=== PATIENT | male | born 1975 | race Caucasian/White ===

== ENCOUNTER 2016-08-26 19:01 | Emergency (ER) | payer OTHER ==
[~2016-08-26] VITALS: Ht 170.2 cm; Wt 91.2 kg
[~2016-08-26 19:01] MED LIST: EPP3/2 IM; IBUP-1050 PO
[2016-08-26 19:07] VITALS: TEMP 36.9; Ht 170.2 cm; Wt 91.2 kg
[2016-08-26] MEDS ORDERED: KETOROLAC TROMETHAMINE 30 MG/ML VIAL IV STA (19:36)
[2016-08-26] MEDS ORDERED: OXYC1TAB3 PO (19:40)
[2016-08-26] MEDS ORDERED: AMOX875T PO (19:40)
[2016-08-26] MEDS ORDERED: AMPICILLIN/SULBACTAM SOD INJ 3,000 MG in SODIUM CHLORIDE 0.9% 100ML 100 ML IV ONE (19:45)
[2016-08-26] MEDS ORDERED: ASCO500T16 PO (19:47)
[2016-08-26] MEDS ORDERED: AMOXICIL/CLAVU 875MG HOME PACK PO ONE (20:00)
[2016-08-26] MEDS ORDERED: OXYCODONE IR HOME PACK PO ONE (20:00)
[2016-08-26 20:46] VITALS: BP 135/98; PULSE 73; O2SAT 98
--- NOTE | 2016-08-26 20:53 | EMERGENCY ROOM VISIT NOTE ---
History First contact with patient: 19:29 Chief Complaint: DENTAL PAIN Stated Complaint: THROAT SWELLED LYMPH NODES, HURTS BAD Nursing Triage Summary: Patient ambulatory to triage, states "I had a broken tooth for a while. I am pretty sure something else is going on with it. My lymph nodes on the left side of my neck and mouth are swollen." Patient reports swelling began about 3 weeks ago. History of Present Illness The patient is a 41 year old male who presents to the Emergency Room with complaints of left lower jaw pain and facial swelling. The patient reports that he broke a tooth off "a long time ago". He has noticed intermittent pain and swelling of the left jaw for the past 3 weeks. He became concerned because of the increasing pain over the past 24 hours. He denies any fevers or chills. He rates his discomfort a 10 out of 10. Review of Systems 10 system review was performed and was negative except for pertinent positives and negatives as indicated in history of present illness Past Medical/Surgical History Medical Problems: (1) ANXIETY STATE NOS (2) Bipolar disorder (3) HTN (hypertension) (4) Lumbar disc herniation with radiculopathy Surgical Problems: (1) Bicept tendon surgery (2) History of tonsillectomy (3) Micro discectomy Family History Cancer Heart disease Lung disease Social History Smoking Status: Current Some Day Smoker Alcohol Use: occasionally Drug Use: none Housing Status: lives with family Occupation Status: employed Current/Historical Medications Scheduled Amoxicillin & Pot Clavulanate (Augmentin 875-125 mg), 1 TAB PO BID Ascorbic Acid (Ascorbic Acid), 500 MG PO WK Epinephrine (Epipen), 0.3 MG IM UD Scheduled PRN Oxycodone Ir (Roxicodone Ir), 1-2 TAB PO Q4H PRN for Pain Allergies Coded Allergies: BEE STING (Verified Allergy, Mild, 08/26/16) Physical Exam Vital Signs Date Time Temp Pulse Resp B/P Pulse Ox O2 Delivery O2 Flow Rate FiO2 08/26/16 20:46 73 20 135/98 98 08/26/16 19:07 36.9 98 18 172/113 97 Room Air Pain Rating (0-10): 7.0 Physical Exam CONSTITUTIONAL: Healthy and well nourished. Alert and oriented X 3 with positive affect. Patient does not appear acutely ill or toxic. HEENT: Normocephalic, atraumatic. Pupils equal, round and reactive. The patient does have mild left mandibular swelling. No erythema noted. OROPHARYNX: The patient has left gingival erythema, edema and mild pointing adjacent to a broken left molar. No fluctuance noted. No evidence for Madan' s angina or retropharyngeal abscess. LYMPHATICS: Mild left submandibular adenopathy noted. NECK: Full active range of motion without discomfort. RESPIRATORY: Clear to auscultation bilaterally with no wheezing, crackles, rhonchi or stridor. CARDIOVASCULAR: Regular rate and rhythm with no murmurs, rubs or gallops. INTEGUMENTARY: No rash or other significant dermatologic conditions noted. NEUROLOGIC: Facial sensations are intact. Medical Decision & Procedures Medications Administered Medications (Trade) Dose Ordered Sig/Irving Route Start Time Stop Time Status Last Admin Dose Admin Ampicillin Sodium/ Sulbactam Sodium/ Sodium Chloride (Unasyn Inj/Nss 100ml) 108 ml @ 200 mls/hr ONE ONCE IV 08/26/16 19:45 08/26/16 20:17 DC 08/26/16 19:56 200 MLS/HR Ketorolac Tromethamine (Toradol Inj) 30 mg NOW STAT IV 08/26/16 19:36 08/26/16 19:38 DC 08/26/16 19:56 30 MG Oxycodone HCl (Roxicodone Immediate Rel 5MG Home Pack) 1 homepack UD ONCE PO 08/26/16 20:00 08/26/16 20:01 DC 08/26/16 20:42 1 HOMEPACK Amoxicillin/ Clavulanate Potassium (Augmentin 875MG Home Pack) 1 homepack UD ONCE PO 08/26/16 20:00 08/26/16 20:01 DC 08/26/16 20:42 1 HOMEPACK ED Course Patient history and physical exam were performed. Nurse's notes were reviewed. Clinical exam is concerning for a dental abscess. IV access was established, and the patient was administered Unasyn 3 g IV infusion. He was also administered Toradol 30 mg IVP. The patient was provided home packs and prescriptions for Augmentin and OxyIR 5 mg. He was encouraged to alternate ibuprofen and Tylenol for baseline pain relief. He was instructed to follow-up with his dentist for further management. Return to the emergency department for any progressively worsening symptoms. The patient was also advised that his blood pressure is significantly elevated, and should follow up with his PCP for further evaluation. He has a known history of hypertension. The patient voiced understanding of all discharge instructions, and denied any significant pain at the time of discharge. Medical Decision [place] Drug Monitoring [place] Search Results: patient reviewed within database, no issues identified Impression Primary Impression: Dental abscess Departure Information Dispostion Home / Self-Care Prescriptions Oxycodone Ir (Roxicodone Ir) 5 Mg Tab 1-2 TAB PO Q4H Y for Pain, #24 TAB For Initial Treatment Prov: Tone Lassiter PA 08/26/16 Amoxicillin & Pot Clavulanate (Augmentin 875-125 mg) 1 Tab Tab 1 TAB PO BID for 10 Days, #20 TAB Prov: Tone Lassiter PA 08/26/16 Forms HOME CARE DOCUMENTATION FORM, IMPORTANT VISIT INFORMATION Patient Instructions My [facility] Additional Instructions Finish all Augmentin antibiotics as prescribed. Ibuprofen 800 mg and/or Tylenol 1000 mg every 8 hours. You may also alternate these medications for more effective pain relief: Ibuprofen --4 HRS--> Tylenol --4 HRS--> ibuprofen --4 HRS--> Tylenol .... OxyIR if needed for worse pain. Do not drink or drive while taking OxyIR. Follow-up with your dentist for further management.
== END 2016-08-26 20:47 | disposition home or self-care (01) ==
LOC: C.EDB 19:02 → C.EDD 20:47
DX: K04.7 Periapical abscess without sinus (principal); I10 Essential (primary) hypertension; F41.9 Anxiety disorder, unspecified; F31.9 Bipolar disorder, unspecified; M51.16 Intervertebral disc disorders with radiculopathy, lumbar region; Z80.9 Family history of malignant neoplasm, unspecified; Z82.49 Family history of ischemic heart disease and other diseases of the circulatory system; Z83.6 Family history of other diseases of the respiratory system; F17.210 Nicotine dependence, cigarettes, uncomplicated

== ENCOUNTER 2016-09-16 08:26 | Emergency (ER) | payer OTHER ==
[~2016-09-16] VITALS: Ht 170.2 cm; Wt 90.0 kg
[~2016-09-16 08:26] MED LIST changes: +ASCO500T16 PO; -IBUP-1050 PO; +OXYC1TAB3 PO
[2016-09-16 08:30] VITALS: TEMP 36.7
[2016-09-16] MEDS ORDERED: METHYLPREDNISOLONE 125 MG VIAL IV STA (08:57)
[2016-09-16] MEDS ORDERED: ALBUTEROL HFA 8 GM INHALER INH STA (08:57)
[2016-09-16] MEDS ORDERED: ALBUT/IPRATROP 3MG/0.5MG NEB 3 ML VIAL INH ONE (09:00)
[2016-09-16] MEDS ORDERED: HYDROCODONE/HOMATROPINE SYRUP 5MG/1.5MG 5ML UDP PO STA (09:04)
[2016-09-16] MEDS ORDERED: SODIUM CHLORIDE 0.9% 1000ML 1,000 ML IV STA (09:04)
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
[2016-09-16 09:10] VITALS: Ht 170.2 cm; Wt 90.0 kg
[2016-09-16 09:22] VITALS: PULSE 87; O2SAT 97
[2016-09-16 09:30] VITALS: O2SAT 95
[2016-09-16 09:45] LABS: BASO % 0.2 %; BASO ABS # 0.02 K/uL (0-0.2); COMPLETE YES; EOS % 0.6 %; HEMATOCRIT 40.9 % (42-52); IG% 0.1 %; LYMPH % 16.4 %; LYMPH ABS # 1.34 K/uL (1.2-3.4); MEAN CELL VOLUME 85.2 fL (80-100); MEAN CORPUSCULAR HGB CONC 35.2 g/dl (32-36); MONO % 10.9 %; NEUT % 71.8 %; PLATELET COUNT 283 K/uL (130-400); WHITE BLOOD COUNT 8.15 K/uL (4.8-10.8)
[2016-09-16 10:07] LABS: BUN/CREATININE RATIO 16.2 (10-20); CALCIUM 9.1 mg/dl (8.5-10.1); CREATININE 0.92 mg/dl (0.60-1.40); POTASSIUM 3.6 mmol/L (3.5-5.1)
--- NOTE | 2016-09-16 10:08 | DIAGNOSTIC IMAGING REPORT ---
SINGLE VIEW CHEST CLINICAL HISTORY: Dyspnea. FINDINGS: An AP, portable, upright chest radiograph is compared to study dated 11/01/2013. Correlation is made with chest CT dated 05/21/2008. The examination is degraded by portable technique and patient rotation. The cardiomediastinal silhouette is unremarkable. Nonspecific interstitial thickening is noted. There is no airspace consolidation or pleural effusion. No pneumothorax is seen. The bony thorax is grossly intact. IMPRESSION: No acute cardiopulmonary abnormality. Electronically signed by: Marcus Ferris M.D. 09/16/2016 10:07 AM Dictated Date/Time: 09/16/2016 10:06 AM
[2016-09-16 10:10] LABS: ALB/GLOB RATIO 1.2 (0.9-2)
[2016-09-16] MEDS ORDERED: HYDROmorphone INJ 1 MG/ML SYR IV STA (10:24)
[2016-09-16] MEDS ORDERED: KETOROLAC TROMETHAMINE 30 MG/ML VIAL IV STA (10:25)
[2016-09-16] MEDS ORDERED: PRED20TA2 PO (10:33)
[2016-09-16] MEDS ORDERED: HYDR5SYP11 PO (10:33)
[2016-09-16 11:37] VITALS: BP 145/86; PULSE 80; O2SAT 94
== END 2016-09-16 11:40 | disposition home or self-care (01) ==
LOC: C.EDB 08:28 → C.EDA 11:40
DX: J68.0 Bronchitis and pneumonitis due to chemicals, gases, fumes and vapors (principal); T59.7X1A Toxic effect of carbon dioxide, accidental (unintentional), initial encounter; X58.XXXA Exposure to other specified factors, initial encounter; Y92.89 Other specified places as the place of occurrence of the external cause; Y99.0 Civilian activity done for income or pay; F41.9 Anxiety disorder, unspecified; F31.9 Bipolar disorder, unspecified; I10 Essential (primary) hypertension; M51.16 Intervertebral disc disorders with radiculopathy, lumbar region; Z80.9 Family history of malignant neoplasm, unspecified; Z82.49 Family history of ischemic heart disease and other diseases of the circulatory system; Z83.6 Family history of other diseases of the respiratory system; F17.210 Nicotine dependence, cigarettes, uncomplicated

== ENCOUNTER 2016-11-07 10:21 | Emergency (ER) | payer OTHER ==
[~2016-11-07] VITALS: Ht 170.2 cm; Wt 92.2 kg
[~2016-11-07 10:21] MED LIST changes: -ASCO500T16 PO; -OXYC1TAB3 PO; +PRED20TA2 PO
[2016-11-07 10:26] VITALS: BP 142/98; PULSE 69; TEMP 36.7; O2SAT 98; Ht 170.2 cm; Wt 92.2 kg
[2016-11-07] MEDS ORDERED: PENICILLIN V POTASSIUM 250 MG TAB PO ONE (10:45)
[2016-11-07] MEDS ORDERED: IBUP600T44 PO (10:49)
[2016-11-07] MEDS ORDERED: AMOX500C3 PO (10:49)
[2016-11-07] MEDS ORDERED: PENI-82 PO (10:52)
[2016-11-07] MEDS ORDERED: OXYC1TAB3 PO (10:52)
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
== END 2016-11-07 11:00 | disposition home or self-care (01) ==
LOC: C.EDB 10:23
DX: K08.89 Other specified disorders of teeth and supporting structures (principal); S02.5XXA Fracture of tooth (traumatic), initial encounter for closed fracture; X58.XXXA Exposure to other specified factors, initial encounter; I10 Essential (primary) hypertension; Z87.891 Personal history of nicotine dependence; Z90.89 Acquired absence of other organs; Z98.890 Other specified postprocedural states

== ENCOUNTER 2016-12-30 09:16 | Emergency (ER) | payer OTHER ==
[~2016-12-30] VITALS: Ht 170.2 cm; Wt 91.4 kg
[~2016-12-30 09:16] MED LIST changes: +AMOX500C3 PO; +IBUP600T44 PO; +OXYC1TAB3 PO; +PENI-82 PO; -PRED20TA2 PO
[2016-12-30 09:21] VITALS: TEMP 36.5; Ht 170.2 cm; Wt 91.4 kg
[2016-12-30] MEDS ORDERED: OXYCODONE/ACETAMINOPHEN 5-325 TAB PO STA (10:08)
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
[2016-12-30] MEDS ORDERED: OXYC1TAB3 PO (12:12)
[2016-12-30 12:32] VITALS: BP 136/88; PULSE 60; O2SAT 100
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
== END 2016-12-30 12:33 | disposition home or self-care (01) ==
LOC: C.EDB 09:19
DX: S06.0X0A Concussion without loss of consciousness, initial encounter (principal); S16.1XXA Strain of muscle, fascia and tendon at neck level, initial encounter; W22.8XXA Striking against or struck by other objects, initial encounter; Y99.0 Civilian activity done for income or pay; R51 Headache; F43.10 Post-traumatic stress disorder, unspecified; F31.9 Bipolar disorder, unspecified; F41.9 Anxiety disorder, unspecified; I10 Essential (primary) hypertension; M51.16 Intervertebral disc disorders with radiculopathy, lumbar region; F17.200 Nicotine dependence, unspecified, uncomplicated

== ENCOUNTER 2017-01-07 18:13 | Inpatient (IN) | payer OTHER ==
[~2017-01-07] VITALS: Ht 170.2 cm; Wt 89.4 kg
[~2017-01-07 18:13] MED LIST changes: -AMOX500C3 PO; -EPP3/2 IM; -IBUP600T44 PO; -PENI-82 PO
[2017-01-07] MEDS ORDERED: PROCHLORPERAZINE 5 MG/ML 2 ML VIAL IV STA (18:52)
[2017-01-07] MEDS ORDERED: DiphenhydrAMINE HCL 50 MG/ML VIAL IV STA (18:52)
[2017-01-07] MEDS ORDERED: KETOROLAC TROMETHAMINE 30 MG/ML VIAL IV STA (18:52)
[2017-01-07] MEDS ORDERED: SODIUM CHLORIDE 0.9% 1000ML 2,000 ML IV STA (18:52)
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
--- NOTE | 2017-01-07 19:26 | DIAGNOSTIC IMAGING REPORT ---
CHEST ONE VIEW PORTABLE CLINICAL HISTORY: Multiple syncopal events. COMPARISON STUDY: Chest radiograph September 16, 2016. FINDINGS: There is no pneumothorax or pleural effusion. Lungs are clear. Cardiac size is normal. Mediastinal contours are normal. There is no evidence of pulmonary edema. IMPRESSION: No acute cardiopulmonary findings. Electronically signed by: Can Douglas M.D. 01/07/2017 7:25 PM Dictated Date/Time: 01/07/2017 7:24 PM
[2017-01-07 19:30] LABS: BASO % 0.2 %; BASO ABS # 0.02 K/uL (0-0.2); COMPLETE YES; EOS % 0.8 %; HEMATOCRIT 44.5 % (42-52); IG% 0.2 %; LYMPH % 9.5 %; MEAN CELL VOLUME 88.1 fL (80-100); MEAN CORPUSCULAR HEMOGLOBIN 29.5 pg (25-34); MEAN CORPUSCULAR HGB CONC 33.5 g/dl (32-36); MONO % 7.4 %; NEUT % 81.9 %; PLATELET COUNT 228 K/uL (130-400); RED BLOOD COUNT 5.05 M/uL (4.7-6.1); WHITE BLOOD COUNT 9.51 K/uL (4.8-10.8)
[2017-01-07 19:51] LABS: BUN/CREATININE RATIO 9.6 (10-20); POTASSIUM 3.3 mmol/L (3.5-5.1)
--- NOTE | 2017-01-07 20:03 | DIAGNOSTIC IMAGING REPORT ---
CT OF THE HEAD WITHOUT CONTRAST CLINICAL HISTORY: Multiple syncopal events s/p head injury 1 week ago. COMPARISON STUDY: Head CT December 30, 2016. CT DOSE: 537.48 mGy.cm TECHNIQUE: Helical axial images of the head were obtained without IV contrast. Automated exposure control was utilized for the study. FINDINGS: No acute intracranial hemorrhage, midline shift or mass effect is present. Ventricular system is normal. Basilar cisterns are patent. There are no extra-axial collections. Bautista-white differentiation is maintained. There are no findings to suggest acute dural sinus thrombosis or acute territorial infarct. There is no calvarial fracture. Visualized portions of the sinuses and mastoid air cells are clear. IMPRESSION: 1. No acute intracranial findings. 2. No calvarial fracture. Electronically signed by: Can Douglas M.D. 01/07/2017 8:02 PM Dictated Date/Time: 01/07/2017 7:57 PM
[2017-01-07 20:16] LABS: PARTIAL THROMBOPLASTIN RATIO 1.2; PROTHROMBIN TIME (PATIENT) 10.3 SECONDS (9.0-12.0)
--- NOTE | 2017-01-07 21:35 | DIAGNOSTIC IMAGING REPORT ---
CT ANGIOGRAPHY OF THE NECK WITH CONTRAST CLINICAL HISTORY: Right-sided head injury. Persistent headache. COMPARISON STUDY: Cervical spine CT December 30, 2016. Technique: CT angiography of the carotid and vertebral arteries was obtained using FlagTap 320 IV and 3D reconstruction on an independent workstation. NASCET criteria was utilized. CT DOSE: 1058.64 mGy.cm Findings: The bilateral common carotid, internal carotid and vertebral arteries are patent. There is no significant stenosis within these vessels. No dissection is identified within the major vasculature of the neck. No hematoma or cervical lymphadenopathy is present. No mucosal lesion is identified although these may be occult by CT. There is no cervical spine fracture. Chest will be reported separately. IMPRESSION: Normal CTA of the neck. Electronically signed by: Can Douglas M.D. 01/07/2017 9:33 PM Dictated Date/Time: 01/07/2017 9:25 PM
--- NOTE | 2017-01-07 21:44 | DIAGNOSTIC IMAGING REPORT ---
CT ANGIOGRAPHY OF THE CHEST, PULMONARY EMBOLUS PROTOCOL CLINICAL HISTORY: Chest pain and syncope. Vomiting. COMPARISON STUDY: Chest CT May 21, 2008 and chest radiograph performed earlier today. TECHNIQUE: Following IV administration of 117 mL of Optiray-320, helical axial images of the chest were obtained utilizing the pulmonary embolus protocol. Maximal intensity projections and sagittal and coronal reformats were viewed on an independent 3D workstation. IV contrast was administered without complication. FINDINGS: No pulmonary emboli are identified although the segmental and subsegmental pulmonary arteries are suboptimally assessed due to respiratory motion. The size of the heart is at the upper limits of normal. There is no evidence of thoracic aortic dissection. There are no enlarged thoracic lymph nodes. No pneumothorax or pleural effusion is present. Groundglass opacities within lungs suggest atelectasis. Central airways are patent. Bony thorax and upper abdomen are unremarkable. IMPRESSION: 1. No pulmonary emboli identified although segmental and subsegmental pulmonary arteries suboptimally assessed due to respiratory motion. 2. No thoracic aortic dissection. 3. No acute intrathoracic findings. Electronically signed by: Can Douglas M.D. 01/07/2017 9:43 PM Dictated Date/Time: 01/07/2017 9:35 PM
[2017-01-07 22:49] LABS: URINE APPEARANCE CLEAR (CLEAR); URINE BILIRUBIN NEG (NEG); URINE COLOR YELLOW; URINE NITRITE NEG (NEG); URINE PH 5.5 (4.5-7.5); URINE SPECIFIC GRAVITY 1.027 (1.000-1.030); UROBILINOGEN NEG (NEG); ZZUR CULT IF INDIC CLEAN CATCH NO
[2017-01-07 22:57] LABS: MANUAL MICROSCOPIC REQUIRED? NO; REVIEW REQ? NO
[2017-01-07 23:09] LABS: BENZODIAZEPINE, URINE NEG (NEG); COCAINE,URINE NEG (NEG); PHENCYCLIDINE, URINE NEG (NEG)
[2017-01-07] MEDS ORDERED: ALUMINUM/MAGNESIUM/SIMETH (MAALOX MAX) 30 ML UDC PO PRN (23:45)
[2017-01-07] MEDS ORDERED: POLYETHYLENE (MIRALAX) 17 GM PACK PO PRN (23:45)
[2017-01-07] MEDS ORDERED: ACETAMINOPHEN 325 MG TAB PO PRN (23:45)
[2017-01-07] MEDS ORDERED: ONDANSETRON INJ 2 MG/ML 2 ML VIAL IV PRN (23:45)
[2017-01-07] MEDS ORDERED: NITROGLYCERIN 0.4 MG SL PER TAB CHARGE SL PRN (23:45)
--- NOTE | 2017-01-07 23:46 | History and Physical ---
History & Physical Date & Time of Service: Jan 07, 2017 at 23:46 Chief Complaint: Vomiting, Unable To Stand, Head Pain- Primary Care Physician: No Doctor, Assigned History of Present Illness 41-year-old male with no significant past medical history except for history of concussion a few weeks ago presented to the ER with complaints of a headache that started this morning. Per ER notes, he had a concussion after he was hit by concrete 2 weeks ago while at work .he had briefly lost consciousness at that point. He was seen in the ER on 12/30/[address] was performed which was negative for hemorrhage. He was being treated for concussion. He also noted that he was wearing a harness at that time . He complains of headache and a syncopal episode which occurred this morning. He is unsure how long he was unconscious. he complains of numbness and tingling in his arm, nausea and headache. Denies any chest pain, shortness of breath, palpitations. Past Medical/Surgical History Medical Problems: (1) ANXIETY STATE NOS Status: Chronic (2) Bipolar disorder Status: Chronic (3) HTN (hypertension) Status: Chronic (4) Lumbar disc herniation with radiculopathy Status: Resolved Surgical Problems: (1) Bicept tendon surgery Status: Resolved (2) Micro discectomy Status: Resolved Family History Cancer Heart disease Lung disease Social History Smoking Status: Never Smoker Drug Use: none Housing status: lives alone Occupational Status: employed Immunizations History of Influenza Vaccine: No History of Tetanus Vaccine?: Yes History of Pneumococcal: No History of Hepatitis B Vaccine: Yes Multi-Drug Resistant Organisms History of MDRO: Yes Type of MDRO: MRSA Allergies Coded Allergies: BEE STING (Verified Allergy, Mild, 01/10/17) Home Medications Scheduled Colchicine (Colcrys), 0.6 MG PO BID Scheduled PRN Ketorolac Tromethamine (Ketorolac Tromethamine), 10 MG PO Q6H PRN for Pain Review of Systems Constitutional: No fever, No chills Eyes: No worsening of vision ENT: No hearing loss Respiratory: No cough, No sputum Cardiovascular: No chest pain, No orthopnea Abdomen: No pain, No nausea, No vomiting Genitourinary - Male: No hematuria Neurologic: + numbness/tingling (in right arm), + problem reported Hematologic / Lymphatic: No abnormal bleeding/bruising Integumentary: No rash Physical Exam Vital Signs Date Time Temp Pulse Resp B/P (MAP) Pulse Ox O2 Delivery O2 Flow Rate FiO2 01/07/17 22:23 55 16 98/61 97 Room Air 01/07/17 20:29 63 01/07/17 20:20 69 16 125/76 97 Room Air 01/07/17 18:24 36.9 62 16 138/96 99 Room Air General Appearance: WD/WN Head: normocephalic Eyes: normal inspection ENT: hearing grossly normal Neck: supple Respiratory/Chest: chest non-tender, lungs clear, normal breath sounds, no respiratory distress, no accessory muscle use Cardiovascular: regular rate, rhythm Abdomen/GI: normal bowel sounds, non tender, soft Extremities/Musculoskelatal: no calf tenderness, no pedal edema Neurologic/Psych: normal mood/affect, oriented x 3 (appesars drowsy), + pertinent finding Skin: normal color Diagnostics Laboratory Results Results Past 24 Hours Test 01/07/17 19:10 01/07/17 22:15 01/07/17 22:25 Range/Units White Blood Count 9.51 4.8-10.8 K/uL Red Blood Count 5.05 4.7-6.1 M/uL Hemoglobin 14.9 14.0-18.0 g/dL Hematocrit 44.5 42-52 % Mean Corpuscular Volume 88.1 80-100 fL Mean Corpuscular Hemoglobin 29.5 25-34 pg Mean Corpuscular Hemoglobin Concent 33.5 32-36 g/dl Platelet Count 228 130-400 K/uL Mean Platelet Volume 10.0 7.4-10.4 fL Neutrophils (%) (Auto) 81.9 % Lymphocytes (%) (Auto) 9.5 % Monocytes (%) (Auto) 7.4 % Eosinophils (%) (Auto) 0.8 % Basophils (%) (Auto) 0.2 % Neutrophils # (Auto) 7.79 1.4-6.5 K/uL Lymphocytes # (Auto) 0.90 1.2-3.4 K/uL Monocytes # (Auto) 0.70 0.11-0.59 K/uL Eosinophils # (Auto) 0.08 0-0.5 K/uL Basophils # (Auto) 0.02 0-0.2 K/uL RDW Standard Deviation 43.9 36.4-46.3 fL RDW Coefficient of Variation 13.6 11.5-14.5 % Immature Granulocyte % (Auto) 0.2 % Immature Granulocyte # (Auto) 0.02 0.00-0.02 K/uL Prothrombin Time 10.3 9.0-12.0 SECONDS Prothromb Time International Ratio 1.0 0.9-1.1 Activated Partial Thromboplast Time 30.8 21.0-31.0 SECONDS Partial Thromboplastin Ratio 1.2 D-Dimer 190 0-500 ug/L FEU Sodium Level 139 136-145 mmol/L Potassium Level 3.3 3.5-5.1 mmol/L Chloride Level 105 98-107 mmol/L Carbon Dioxide Level 29 21-32 mmol/L Anion Gap 5.0 3-11 mmol/L Blood Urea Nitrogen 10 7-18 mg/dl Creatinine 1.00 0.60-1.40 mg/dl Est Creatinine Clear Calc Drug Dose 107.3 ml/min Estimated GFR () 109.4 Estimated GFR (Non- 94.4 BUN/Creatinine Ratio 9.6 10-20 Random Glucose 108 70-99 mg/dl Calcium Level 9.0 8.5-10.1 mg/dl Total Creatine Kinase 452 39-308 U/L Troponin I 2.240 0-0.045 ng/ml Urine Color YELLOW Urine Appearance CLEAR CLEAR Urine pH 5.5 4.5-7.5 Urine Specific [place] 1.027 1.000-1.030 Urine Protein NEG NEG Urine Glucose (UA) NEG NEG Urine Ketones NEG NEG Urine Occult Blood NEG NEG Urine Nitrite NEG NEG Urine Bilirubin NEG NEG Urine Urobilinogen NEG NEG Urine Leukocyte Esterase NEG NEG Urine WBC (Auto) 1-5 0-5 /hpf Urine RBC (Auto) 0-4 0-4 /hpf Urine Hyaline Casts (Auto) 1-5 0-5 /lpf Urine Epithelial Cells (Auto) 5-10 0-5 /lpf Urine Bacteria (Auto) NEG NEG Urine Opiates Screen NEG NEG Urine Methadone, Qualitative NEG NEG Urine Barbiturates NEG NEG Urine Phencyclidine (PCP) Level NEG NEG Ur Amphetamine/Methamphetamine NEG NEG MDMA (Ecstasy) Screen NEG NEG Urine Benzodiazepines Screen NEG NEG Urine Cocaine Metabolite NEG NEG Urine Marijuana (THC) POS NEG Diagnostic Radiology [~ rep ct add3]] CT OF THE HEAD WITHOUT CONTRAST CLINICAL HISTORY: Multiple syncopal events s/p head injury 1 week ago. COMPARISON STUDY: Head CT December 30, 2016. CT DOSE: 537.48 mGy.cm TECHNIQUE: Helical axial images of the head were obtained without IV contrast. Automated exposure control was utilized for the study. FINDINGS: No acute intracranial hemorrhage, midline shift or mass effect is present. Ventricular system is normal. Basilar cisterns are patent. There are no extra-axial collections. Bautista-white differentiation is maintained. There are no findings to suggest acute dural sinus thrombosis or acute territorial infarct. There is no calvarial fracture. Visualized portions of the sinuses and mastoid air cells are clear. IMPRESSION: 1. No acute intracranial findings. 2. No calvarial fracture. Electronically signed by: Can Douglas M.D. 01/07/2017 8:02 PM Dictated Date/Time: 01/07/2017 7:57 PM CHEST ONE VIEW PORTABLE CLINICAL HISTORY: Multiple syncopal events. COMPARISON STUDY: Chest radiograph September 16, 2016. FINDINGS: There is no pneumothorax or pleural effusion. Lungs are clear. Cardiac size is normal. Mediastinal contours are normal. There is no evidence of pulmonary edema. IMPRESSION: No acute cardiopulmonary findings. Electronically signed by: Can Douglas M.D. 01/07/2017 7:25 PM Dictated Date/Time: 01/07/2017 7:[address] ANGIOGRAPHY OF THE CHEST, PULMONARY EMBOLUS PROTOCOL CLINICAL HISTORY: Chest pain and syncope. Vomiting. COMPARISON STUDY: Chest CT May 21, 2008 and chest radiograph performed earlier today. TECHNIQUE: Following IV administration of 117 mL of Optiray-320, helical axial images of the chest were obtained utilizing the pulmonary embolus protocol. Maximal intensity projections and sagittal and coronal reformats were viewed on an independent 3D workstation. IV contrast was administered without complication. FINDINGS: No pulmonary emboli are identified although the segmental and subsegmental pulmonary arteries are suboptimally assessed due to respiratory motion. The size of the heart is at the upper limits of normal. There is no evidence of thoracic aortic dissection. There are no enlarged thoracic lymph nodes. No pneumothorax or pleural effusion is present. Groundglass opacities within lungs suggest atelectasis. Central airways are patent. Bony thorax and upper abdomen are unremarkable. IMPRESSION: 1. No pulmonary emboli identified although segmental and subsegmental pulmonary arteries suboptimally assessed due to respiratory motion. 2. No thoracic aortic dissection. 3. No acute intrathoracic findings. Electronically signed by: Can Douglas M.D. 01/07/2017 9:43 PM Dictated Date/Time: 01/07/2017 9:[address] ANGIOGRAPHY OF THE NECK WITH CONTRAST CLINICAL HISTORY: Right-sided head injury. Persistent headache. COMPARISON STUDY: Cervical spine CT December 30, 2016. Technique: CT angiography of the carotid and vertebral arteries was obtained using Optiray 320 IV and 3D reconstruction on an independent workstation. NASCET criteria was utilized. CT DOSE: 1058.64 mGy.cm Findings: The bilateral common carotid, internal carotid and vertebral arteries are patent. There is no significant stenosis within these vessels. No dissection is identified within the major vasculature of the neck. No hematoma or cervical lymphadenopathy is present. No mucosal lesion is identified although these may be occult by CT. There is no cervical spine fracture. Chest will be reported separately. IMPRESSION: Normal CTA of the neck. Electronically signed by: Can Douglsa M.D. 01/07/2017 9:33 PM Dictated Date/Time: 01/07/2017 9:25 PM EKG Normal sinus rhythm with sinus arrhythmia Normal ECG When compared with ECG of 16-SEP-2016 09:12, T wave amplitude has decreased in Anterior leads Confirmed by FLACO DURAN MD ([id number]) on 01/07/2017 9:56:35 PM Impression Assessment and Plan 41-year-old male with no significant past medical history except for history of concussion a few weeks ago presented to the ER with complaints of a headache that started this morning and a syncopal episode this morning. Also complains of numbness and tingling in his right arm Postconcussive syndrome vs complex migraine( headache with numbness and tingling in R arm) - History of concussion 2 weeks ago - Head CT:IMPRESSION: 1. No acute intracranial findings. 2. No calvarial fracture. - Neck CTA due to concerns of numbness in arm: Normal CTA of the neck. - MRI brain ordered - Neurology consult Elevated troponin: - Initial troponin was found to be 2.24 - Likely secondary to cardiac contusion (due to injury a few weeks ago ) vs pericarditis vs CAD - EKG: Normal sinus rhythm with sinus arrhythmia ,Normal ECG - CTA chest:1.No pulmonary emboli identified although segmental and subsegmental pulmonary arteries suboptimally assessed due to respiratory motion. 2. No thoracic aortic dissection. 3. No acute intrathoracic findings. - Troponins trended every 8 hours - Echo ordered - Consult cardiology DVT prophylaxis: SCDs Full code Disposition: Admitted to telemetry Addendum: At about 3:20 AM , was notified by nursing that he was found to have ST elevations on the cardiac rehab nurse. Heart alert was called, EKG, stat chest x-ray, stat troponins were ordered. He also had a bump in his troponin to 4.25 from 2.24 at 2350 The patient was asymptomatic during this time but his heart rate had dropped to 40s -50s. He was taken to the [facility] for cardiac catheterization Attending Addendum: I physically seen and examined this patient, have supervised the medical residents activities, and agree with the H&P as noted above with the following exceptions: NONE The patient is awake, well-developed and adequately nourished, alert and oriented 3, normocephalic and atraumatic, lying in bed and in no acute distress. HEENT--PERRL, EOMI, mucous membranes and oropharynx dry. Neck--supple, no JVD or bruits, thyroid normal, trachea midline, no adenopathy. Heart--normal S1 and S2, no extra beats, no murmurs, rubs or gallops. Lungs--clear bilaterally, but diminished throughout no respiratory distress, no accessory muscle use. Abdomen--normal bowel sounds and soft, nontender and nondistended, no hernias or masses, no organomegaly. Extremities--no cyanosis, clubbing or edema. There are good distal pulses b/l. Dermatologic--normal skin turgor, normal color, warm and dry, no abnormal lymph nodes, no rash. Neurologic--cranial nerves II through XII grossly intact, motor and sensory examination normal. Rheumatologic--normal range of motion, nontender, muscles and joints. Psychiatric--normal affect. Assessment and Plan: 1. Postconcussive syndrome--patient has had intermittent symptoms of headache and disorientation over the past 2 weeks following head trauma, and today had a syncopal episode. He'll be admitted to the telemetry unit for frequent neuro checks, and cardiac rhythm monitoring. Elevated troponin of 2.24 on admission-they also be elevated on basis of pericarditis, possible SVT which could be linked to syncopal episode, and possible ischemia. He was admitted to the telemetry unit for rhythm monitoring , and serial cardiac enzymes with a 2-D echocardiogram planned. The patient developed elevated heart enzymes increasing to 4.25 overnight, a symptomatic bradycardia down into the 40s, and EKG suggestive of ST elevation which could represent a pericarditis or ischemia. At that point, heart alert was called, and the patient was taken to the cardiac catheterization lab by Dr. Duran, fortunately had normal cardiac catheterization, and was started on colchicine and aspirin for pericarditis. Level of Care Telemetry Resuscitation Status FULL RESUSCITATION VTE Prophylaxis VTE Risk Assessment Done? Y/N: Yes Risk Level: Moderate Given or contraindicated: SCD's
[2017-01-08] VITALS (21 sets, daily range): BP systolic 101–201; BP diastolic 71–138; PULSE 47–70; TEMP 36.4–36.9; O2SAT 93–100; Ht 170.2 cm; Wt 89.4 kg
[2017-01-08] MEDS ORDERED: ASPIRIN 81 MG CHEW PO STA (03:28)
[2017-01-08] MEDS ORDERED: NSS + 20MEQ KCL 1000ML 1,000 ML IV SCH (03:30)
[2017-01-08] MEDS ORDERED: ASPIRIN 324 MG CHEW ONE (03:38)
[2017-01-08] MEDS ORDERED: POTASSIUM CHLORIDE 20 MEQ TABCR PO STA (03:42)
[2017-01-08] MEDS ORDERED: NiCARDipine HCL INJ 2.5 MG/ML 10 ML AMP ONE (03:49)
[2017-01-08] MEDS ORDERED: NITROGLYCERIN/D5W 100MCG/ML 20ML SYR ONE (03:49)
[2017-01-08] MEDS ORDERED: MIDAZOLAM HCL 1 MG/ML 2ML VIAL ONE ×2 (03:49→04:39)
[2017-01-08] MEDS ORDERED: HEPARIN SOD (PORCINE) 1000 UNIT/ML 10 ML VIAL ONE (03:49)
[2017-01-08] MEDS ORDERED: FENTANYL CITRATE INJ 50 MCG/1 ML 2 ML VIAL ONE ×2 (03:49→04:40)
[2017-01-08] MEDS ORDERED: POTASSIUM CHLORIDE 20 MEQ TABCR PO SCH (04:00)
[2017-01-08 04:07] LABS: BUN/CREATININE RATIO 9.7 (10-20); CALCIUM 8.6 mg/dl (8.5-10.1); CREATININE 0.81 mg/dl (0.60-1.40)
[2017-01-08] MEDS ORDERED: LIDOCAINE HCL 1% 20 ML VIAL ONE (04:39)
[2017-01-08] MEDS ORDERED: LIDOCAINE/EPINEPHRINE 1% 20 ML VIAL ONE (05:00)
[2017-01-08] MEDS ORDERED: SODIUM CHLORIDE 0.9% 1000ML 250 ML IV PRN (05:35)
[2017-01-08] MEDS ORDERED: ONDANSETRON INJ 2 MG/ML 2 ML VIAL IV PRN (05:45)
[2017-01-08] MEDS ORDERED: ATROPINE SULFATE 0.1 MG/ML 5ML SYR IV PRN (05:45)
[2017-01-08] MEDS ORDERED: ACETAMINOPHEN 325 MG TAB PO PRN (05:45)
--- NOTE | 2017-01-08 05:49 | Procedure Note ---
Post-Mod Sedation Assessment General Date of Moderate Sedation Jan 08, 2017. Vital Signs: Vital Signs Past 12 Hours Date Time Temp Pulse Resp B/P (MAP) Pulse Ox O2 Delivery O2 Flow Rate FiO2 01/08/17 05:13 53 16 111/70 (84) 98 Room Air 01/08/17 01:06 36.6 56 18 143/76 97 Room Air 01/08/17 00:31 54 18 103/71 96 01/07/17 22:23 55 16 98/61 97 Room Air 01/07/17 20:29 63 01/07/17 20:20 69 16 125/76 97 Room Air 01/07/17 18:24 36.9 62 16 138/96 99 Room Air Review - Discharge Criteria Vital Signs Stable: Yes Alert/Oriented/Conversant: Yes Returned to Baseline Mental St: Yes Nausea Absent/Minimal: Yes Pain/Discomfort/Absent/Minimal: Yes Normal/Baseline Respirations: Yes Active Bleeding?: No Pt Received D/C Instructions: N/A Prescriptions Given: None Specific Proced. D/C Criteria Distal Pulses Present (Cardiac: Yes Groin site assessed-Card Cath: Yes Voided Prior To Discharge: N/A Discharged Patients Adult Escort/Transportation: N/A
--- NOTE | 2017-01-08 05:49 | Procedure Note ---
Pre-Mod Sedation Assessment General Date of Moderate Sedation: Jan 08, 2017. Vital Signs: Vital Signs Past 12 Hours Date Time Temp Pulse Resp B/P (MAP) Pulse Ox O2 Delivery O2 Flow Rate FiO2 01/08/17 05:13 53 16 111/70 (84) 98 Room Air 01/08/17 01:06 36.6 56 18 143/76 97 Room Air 01/08/17 00:31 54 18 103/71 96 01/07/17 22:23 55 16 98/61 97 Room Air 01/07/17 20:29 63 01/07/17 20:20 69 16 125/76 97 Room Air 01/07/17 18:24 36.9 62 16 138/96 99 Room Air Review Cardiovascular: regular rate, rhythm, no edema, no gallop, no JVD, no murmur, normal peripheral pulses Abdomen: non tender, soft Lungs: lungs clear Pre-Sedation Airway Assessment Oral Cavity: WNL Able to Visualize Vocal Cords: No Short Thick Neck: No Hx of Sleep Apnea: No Smoking Status: Former Smoker Mallampati Classification: Class III Procedure Planning Contraindications-for Mod Sed: None Yes Notes The planned sedation has been discussed with the patient and consent obtained. I have identified the patient, determined the appropriateness of sedation and have assessed the patient immediately prior to the procedure. All medicine(s) and interventions are by my order.
[2017-01-08] MEDS: SODIUM CHLORIDE 0.9% 1000ML 1,000 ML IV SCH ×3 (05:59→21:16)
--- NOTE | 2017-01-08 06:16 | Cardiac Catheterization ---
Procedure Note Procedure Date Jan 08, 2017. Pre-Procedure Diagnosis STEMI AUC Score 9 Post-Procedure Diagnosis Normal Coronary Arteries, Elevated Intracardiac Pressures (Mildly elevated LVEDP of 15 mm Hg) Procedure(s) Performed Coronary Angiography, Left Heart Cath, LV Angiography, Ultrasound Guided Vascular Access, Femoral Artery Angiography [employer] Dr. Duran Jtac(s) CHERI Guardado Estimated Blood Loss 15 ml Medication(s) Fentanyl, Versed, Lidocaine 1% Summary of Findings Clinical indications: The patient was admitted with complaints of migraine headache and syncope. Also complaints of chest pressure. Electrocardiogram with slight concave ST segment elevations in the anterior and inferior leads. Similar to prior electrocardiograms.Initial troponin I was elevated at 2.240. Subsequent troponin I increased to 4.250. while being monitored it was felt the patient had increase ST segment elevations. A repeat electrocardiogram was performed and was felt to show increase ST segment elevations. The patient complained of mild chest tightness. Because of the ST segment changes, elevated cardiac enzymes, and complain of chest discomfort a heart alert was called. The patient was evaluated by me in the intensive care unit. He had complaints of mild vague chest tightness. Because of the ST segment elevations on the monitor and electrocardiogram and because of his elevated cardiac enzymes it was felt best to take the patient to the catheterization laboratory to exclude the presence of significant underlying coronary artery disease. After discussion with the patient by me regarding the risks, benefits , and indications for cardiac catheterization the patient consented to the procedure. Catheterization site: It was 1st attempted to obtain arterial access in the right radial artery. The right radial artery was accessed. However, the guidewire would not advance. Initially the right radial pulses strongly palpable. It was no longer the palpable. This was felt to represent spasm. Hemostasis was obtained. Under ultrasound guidance a 6 Belgian sheath was then inserted in the right femoral artery. Catheters: 6 Belgian JL4, JR4 diagnostic catheters. Five Belgian pigtail diagnostic catheter. Hemostasis: 6 Belgian StarClose vascular closure system. Complications: None. Findings: Fluoroscopy did not reveal any coronary calcifications. The coronary circulation was right dominant. The left main coronary artery was a large caliber vessel without obstructive disease. It gave rise to large caliber left anterior descending, medium caliber left circumflex, and small to medium caliber ramus intermedius coronary arteries. The proximal LAD gave rise to a long small caliber bifurcating diagonal artery. The proximal and mid LAD had minor luminal irregularities. The distal LAD wraps around the apex of the heart as a small caliber vessel. The ramus was normal. Left circumflex gave rise to very small caliber 1st and 2nd marginal arteries. The distal circumflex gave rise to two very small caliber posterolateral arteries. The right coronary was a medium to large caliber vessel. It had no obstructive disease. Distal RCA gave rise to a small caliber posterior descending artery and a long medium caliber posterolateral artery. These vessels had no obstructive disease. Left ventricular angiography performed from the 30 degree right anterior oblique projection revealed all LV segments to contract normally. The left ventricular ejection fraction was 60 percent. No mitral regurgitation. Femoral artery angiography revealed the sheath to be present in the right common femoral artery. The right external iliac, right common femoral , right profunda, and right superficial femoral arteries were normal. Assessment: 1. Very minor luminal irregularities of the LAD. No significant obstructive coronary artery disease. 2. Normal left ventricular systolic function and wall motion. 3. Minimally elevated left ventricular end-diastolic pressure following coronary angiography. 4. Based on the findings at catheterization, electrocardiogram, and cardiac enzymes the patient may have myopericarditis. Recommendations: 1.Colchicine 0.6 milligrams b.i.d., ibuprofen 400 milligrams t.i.d.. 2. Echocardiogram to further assess left ventricular wall motion and the pericardium. 3. Check lipid profile and direct LDL. 4. Treatment for hypertension. Hemodynamics Rest Ao: 107/67/86 mm Hg Final Ao: 107/68/87 mm Hg LV: 116/15 mm Hg Recommendations Medical therapy and/or Counseling Specimens None Radiation Exposure (mGy) 1472 Contrast (mls) 120 ml Visipaque Fluids (cc crystalloids) 104 Drains none Anesthesia Intravenous Versed and fentanyl. Lidocaine 1 percent for local anesthesia. Procedural Complication(s) None Disposition ICU ACC Data Cardiac Status Clinical evaluation leading to the procedure CAD Presntation: Sx unlikely to be ischemic Anginal Classification: No symptoms Heart Failure: No Cardiogenic Shock w/in 24Hrs: No Cardiac Arrest w/in 24Hrs: No Imaging studies past 6 months: No Stress studies past 6 months: No Standard Exercise Stress Test: No Stress Echocardiogram: No Stress Testing w/SPECT MPI: No Cardiac CTA: No Coronary Anatomy Dominant: Right Left Main (% Stenosis): Normal LAD (% Stenosis): Proximal (0-10), Mid (0-10) D1 (% Stenosis): Normal Circumflex (% Stenosis): Normal OM1 (% Stenosis): Normal OM2 (% Stenosis): Normal L PL1 (% Stenosis): Normal L PL2 (% Stenosis): Normal RCA (% Stenosis): Normal R PDA (% Stenosis): Normal R PL1 (% Stenosis): Normal Ramus (% Stenosis): Normal Left Ventricular Angiography EF (%): 60 Wall Motion: Inferior (Normal), Apical (Normal), Anterior (Normal) Mitral Regurgitation: None Diagnostic Physician's Name: Russell Duran M.D. Status: Emergency Closure Device Percutaneous Entry Location: Femoral Closure Device: StarClose Recommendations: Medical therapy and/or Counseling
[2017-01-08] MEDS ORDERED: MoRPHine SULFATE 2 MG/ML CARP ONE (06:22)
[2017-01-08] MEDS ORDERED: NURSING VERBAL MED ORDER ONE (06:30)
--- NOTE | 2017-01-08 06:44 | DIAGNOSTIC IMAGING REPORT ---
CHEST ONE VIEW PORTABLE HISTORY:41 yearsM[place]ob COMPARISON: CTA chest 01/07/2017, chest radiograph 01/07/2017 TECHNIQUE: Portable upright AP view of the chest FINDINGS: Cardiac silhouette is upper limits of normal, likely accentuated by technique. There is no pneumothorax, pleural effusion or overt pulmonary edema. Linear subsegmental opacity of the right mid lung suggests atelectasis. The bones are grossly intact. IMPRESSION: Subsegmental atelectasis of the right midlung with otherwise clear chest. The above report was generated using voice recognition software. It may contain grammatical, syntax or spelling errors. Electronically signed by: London Roberson M.D. 01/08/2017 6:43 AM Dictated Date/Time: 01/08/2017 6:41 AM
[2017-01-08] MEDS: COLCHICINE 0.6 MG TAB PO SCH ×2 (09:05→21:28)
[2017-01-08] MEDS: IBUPROFEN 200 MG TAB PO SCH ×2 (09:05→13:24)
[2017-01-08] MEDS: MoRPHine SULFATE 2 MG/ML CARP IV PRN ×2 (09:14→23:53)
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
[2017-01-08] MEDS ORDERED: KETOROLAC TROMETHAMINE 15 MG/ML VIAL IV ONE (10:39)
[2017-01-08] MEDS ORDERED: KETOROLAC TROMETHAMINE 15 MG/ML VIAL IV PRN (10:45)
[2017-01-08] MEDS ORDERED: KETOROLAC TROMETHAMINE 15 MG/ML VIAL ONE (10:46)
--- NOTE | 2017-01-08 11:49 | DIAGNOSTIC IMAGING REPORT ---
ORBIT RADIOGRAPHS 3 VIEWS HISTORY: Pre-MRI pre-MRI screening. COMPARISON: None. FINDINGS: There are no radiopaque foreign bodies identified within the orbits. IMPRESSION: No radiopaque foreign bodies identified within the orbits. Electronically signed by: Varun Carver M.D. 01/08/2017 11:47 AM Dictated Date/Time: 01/08/2017 11:47 AM
--- NOTE | 2017-01-08 12:28 | Family Medicine Progress Note ---
Progress Note Date of Service Jan 08, 2017. 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 Heart alert was called , he had a clean cath was deemed like pericarditis, but also reported R arm pain and numbness. He apparently has a significant psych hx, including PTSD from an incident years ago. He stopped taking meds 6 years ago since he didnt like how he felt on them. Constitutional: No fever, No chills ENT: No hearing loss Respiratory: No cough, No sputum All Other Systems: Reviewed and Negative Medications Current Inpatient Medications Medications (Trade) Dose Ordered Sig/Irving Route Start Time Stop Time Status Last Admin Dose Admin Al Hydrox/Mg Hydrox/Simethicone (Maalox Max Susp) 15 ml Q4H PRN PO 01/07/17 23:45 02/06/17 23:44 Ondansetron HCl (Zofran Inj) 4 mg Q6H PRN IV 01/07/17 23:45 02/06/17 23:44 Nitroglycerin (Nitrostat Tab) 0.4 mg UD PRN SL 01/07/17 23:45 02/06/17 23:44 Polyethylene (Miralax Powder Packet) 17 gm DAILY PRN PO 01/07/17 23:45 02/06/17 23:44 Colchicine (Colchicine Tab) 0.6 mg BID PO 01/08/17 09:00 02/07/17 08:59 01/08/17 09:05 0.6 MG Ibuprofen (Advil Tab) 400 mg TID PO 01/08/17 09:00 02/07/17 08:59 01/08/17 09:05 400 MG Sodium Chloride 1,000 ml @ 125 mls/hr Q8H IV 01/08/17 05:35 02/07/17 05:34 01/08/17 05:59 125 MLS/HR Acetaminophen (Tylenol Tab) 650 mg Q4H PRN PO 01/08/17 05:45 02/07/17 05:44 7/12/17 09:04 650 MG Sodium Chloride 250 ml @ 999 mls/hr Q16M PRN IV 01/08/17 05:35 02/07/17 05:34 Atropine Sulfate (Atropine Sulfate 0.1MG/Ml Inj) 0.6 mg PRN PRN IV 01/08/17 05:45 02/07/17 05:44 Morphine Sulfate (MoRPHine SULFATE INJ) 2 mg Q2H PRN IV 01/08/17 06:30 01/22/17 06:29 01/08/17 09:14 2 MG Ketorolac Tromethamine (Toradol Inj) 15 mg Q6H PRN IV 01/08/17 10:45 01/13/17 10:44 Objective Vital Signs Date Time Temp Pulse Resp B/P (MAP) Pulse Ox O2 Delivery O2 Flow Rate FiO2 01/08/17 10:36 53 12 172/121 (138) 99 01/08/17 10:32 50 15 194/117 (142) 100 01/08/17 09:32 54 16 177/87 (117) 01/08/17 09:24 48 14 189/119 (142) 100 01/08/17 09:12 47 18 201/113 (142) 100 01/08/17 09:02 61 18 201/135 (157) 93 01/08/17 08:01 36.9 54 15 132/86 (101) 98 Room Air 01/08/17 08:00 Room Air 01/08/17 07:31 69 14 128/89 (102) 98 Room Air 01/08/17 07:01 51 14 113/91 (98) 97 Room Air 01/08/17 06:30 52 16 101/75 (84) 95 Room Air 01/08/17 06:15 50 16 118/82 (94) 96 Room Air 01/08/17 06:00 58 14 118/84 (95) 95 Room Air 01/08/17 05:45 59 14 107/71 (83) 94 Room Air 01/08/17 05:30 36.4 53 12 116/71 (86) 94 Room Air 01/08/17 05:13 53 16 111/70 (84) 98 Room Air 01/08/17 01:06 36.6 56 18 143/76 97 Room Air 01/08/17 00:31 54 18 103/71 96 01/07/17 22:23 55 16 98/61 97 Room Air 01/07/17 20:29 63 01/07/17 20:20 69 16 125/76 97 Room Air 01/07/17 18:24 36.9 62 16 138/96 99 Room Air Physical Exam General Appearance: WD/WN, no apparent distress Eyes: normal inspection, PERRL ENT: hearing grossly normal Neck: supple, no JVD Respiratory/Chest: lungs clear, normal breath sounds, no respiratory distress Cardiovascular: regular rate, rhythm, no murmur Abdomen: normal bowel sounds, non tender, soft Extremities: non-tender, no pedal edema Neurologic/Psychiatric: alert, normal mood/affect, oriented x 3 Skin: no rash Laboratory Results Last 24 Hours Test 01/07/17 19:10 01/07/17 22:25 01/07/17 23:50 01/08/17 03:29 White Blood Count 9.51 K/uL Red Blood Count 5.05 M/uL Hemoglobin 14.9 g/dL Hematocrit 44.5 % Mean Corpuscular Volume 88.1 fL Mean Corpuscular Hemoglobin 29.5 pg Mean Corpuscular Hemoglobin Concent 33.5 g/dl Platelet Count 228 K/uL Mean Platelet Volume 10.0 fL Neutrophils (%) (Auto) 81.9 % Lymphocytes (%) (Auto) 9.5 % Monocytes (%) (Auto) 7.4 % Eosinophils (%) (Auto) 0.8 % Basophils (%) (Auto) 0.2 % Neutrophils # (Auto) 7.79 K/uL Lymphocytes # (Auto) 0.90 K/uL Monocytes # (Auto) 0.70 K/uL Eosinophils # (Auto) 0.08 K/uL Basophils # (Auto) 0.02 K/uL RDW Standard Deviation 43.9 fL RDW Coefficient of Variation 13.6 % Immature Granulocyte % (Auto) 0.2 % Immature Granulocyte # (Auto) 0.02 K/uL Prothrombin Time 10.3 SECONDS Prothromb Time International Ratio 1.0 Activated Partial Thromboplast Time 30.8 SECONDS Partial Thromboplastin Ratio 1.2 D-Dimer 190 ug/L FEU Sodium Level 139 mmol/L 143 mmol/L Potassium Level 3.3 mmol/L 4.0 mmol/L Chloride Level 105 mmol/L 110 mmol/L Carbon Dioxide Level 29 mmol/L 26 mmol/L Anion Gap 5.0 mmol/L 7.0 mmol/L Blood Urea Nitrogen 10 mg/dl 8 mg/dl Creatinine 1.00 mg/dl 0.81 mg/dl Est Creatinine Clear Calc Drug Dose 107.3 ml/min 130.6 ml/min Estimated GFR () 109.4 129.8 Estimated GFR (Non- 94.4 112.0 BUN/Creatinine Ratio 9.6 9.7 Random Glucose 108 mg/dl 98 mg/dl Calcium Level 9.0 mg/dl 8.6 mg/dl Total Creatine Kinase 452 U/L Troponin I 2.240 ng/ml 4.250 ng/ml 3.620 ng/ml Urine Color YELLOW Urine Appearance CLEAR Urine pH 5.5 Urine Specific [place] 1.027 Urine Protein NEG Urine Glucose (UA) NEG Urine Ketones NEG Urine Occult Blood NEG Urine Nitrite NEG Urine Bilirubin NEG Urine Urobilinogen NEG Urine Leukocyte Esterase NEG Urine WBC (Auto) 1-5 /hpf Urine RBC (Auto) 0-4 /hpf Urine Hyaline Casts (Auto) 1-5 /lpf Urine Epithelial Cells (Auto) 5-10 /lpf Urine Bacteria (Auto) NEG Urine Opiates Screen NEG Urine Methadone, Qualitative NEG Urine Barbiturates NEG Urine Phencyclidine (PCP) Level NEG Ur Amphetamine/Methamphetamine NEG MDMA (Ecstasy) Screen NEG Urine Benzodiazepines Screen NEG Urine Cocaine Metabolite NEG Urine Marijuana (THC) POS Test 01/08/17 12:00 Assessment and Plan 41 yo M with recent concussion, who presented after a syncopal episode, found to likely have myopericarditis. Myopericarditis - Continue colchicine 0.6mg BID and Ibuprofen 600mg TID PO - Cardiology following - Will discuss potential tick borne exposure - Echo pending. Right arm numbness - Neurology consulted, appreciate Dr Delong's reccs - Pending MRI brain and C spine Hx PTSD, potential Bipolar disorder - Will need to discuss with pt. He is actively anxious which is likely contributing to elevated BP. Syncopal episode - No further events, will continue to monitor DVT prophylaxis: SCDs Full code Disposition: Admitted to telemetry Resident Physician Supervision Note: I interviewed and examined the patient. Discussed with Dr. Dominguez and agree with findings and plan as documented in the note. Any exceptions or clarifications are listed here: None Documented By: Jack Canada feeling better overall, brushing teeth, getting around without difficulty. d/w neurology, input appreciated. vitals noted nad breathing unlabored no pallor or icterus myopericarditis - improving post concussive syndrome - ongiong management otherwise as above Resident Tracking Resident Involvement: Resident Care Provided Care Provided: Adult Hospital Medicine
--- NOTE | 2017-01-08 12:45 | DIAGNOSTIC IMAGING REPORT ---
CERVICAL WITHOUT CONTRAST HISTORY:41 yearsMalestructural abnormality . Patient presents with neck injury status post work-related incident. Patient now reports migraines and possible loss of consciousness. COMPARISON: CT cervical spine 12/30/2016. TECHNIQUE: Multiplanar multisequence MRI of the cervical spine was obtained without IV contrast. FINDINGS: Large field of view images demonstrates no gross abnormality of the neck soft tissues or image thorax. The vertebral body heights are well-maintained without compression deformity. Alignment is satisfactory. There is no focal soft tissue or bone marrow edema. No fracture. The imaged posterior fossa structures are unremarkable. No soft tissue edema about the spine. Signal within the cord is within normal limits. C2-C3: Mild uncovertebral spurring without central canal or foraminal narrowing. C3-C4: Small broad-based posterior disc bulge effaces the ventral thecal sac without significant central canal narrowing. There is also associated uncovertebral spurring which contributes to cause mild right foraminal narrowing. Left foramen is patent. C4-C5: Mild uncovertebral spurring without central canal or foraminal narrowing. C5-C6: Small central broad-based posterior disc bulge effaces the ventral thecal sac without central canal or foraminal narrowing. C6-C7: Normal. C7-T1: Normal. The imaged upper thoracic levels also appear to be within normal limits. IMPRESSION: 1. No acute fracture, dislocation, focal soft tissue or bone marrow edema within the cervical spine. 2. Minimal degenerative changes of the mid cervical spine, most pronounced at C3-C4 where there is a small broad-based posterior disc bulge effacing the ventral thecal sac causing mild right foraminal stenosis. The above report was generated using voice recognition software. It may contain grammatical, syntax or spelling errors. Electronically signed by: London Roberson M.D. 01/08/2017 12:44 PM Dictated Date/Time: 01/08/2017 12:38 PM
--- NOTE | 2017-01-08 13:14 | DIAGNOSTIC IMAGING REPORT ---
MRI OF THE BRAIN WITHOUT AND WITH IV CONTRAST CLINICAL HISTORY: syncope. H/o concussion mental status change COMPARISON STUDY: No previous studies for comparison. TECHNIQUE: Utilizing a 1.5 Gillian magnet and dedicated coil, multiplanar, multiecho imaging of the brain was performed pre and postcontrast administration. IV administration of 8.5 mL of Gadavist contrast was uneventful. FINDINGS: Normal signal characteristics of the cerebellar as well as cerebral hemispheres. No evidence for an acute ischemic event. No abnormal postcontrast enhancement. The ventricular system is midline. IMPRESSION: Normal study. Electronically signed by: Varun Carver M.D. 01/08/2017 1:13 PM Dictated Date/Time: 01/08/2017 1:08 PM
[2017-01-08] MEDS ORDERED: GADAVIST IV PRN (13:15)
--- NOTE | 2017-01-08 15:47 | ECHOCARDIOGRAM REPORT ---
*NOTICE TO RECEIVING CONSTITUTION PARTY AGENCY This information is strictly Confidential and protected under [place] law. [place] law prohibits you from making any further disclosure of this information unless further disclosure is expressly permitted by the written consent of the person to whom it pertains or is authorized by law. A general authorization for the release of medical or other information is not sufficient for this purpose. Hospital accepts no responsibility if the information is made available to any other person, INCLUDING THE PATIENT. Interpretation Summary * Name: JUAN CARLOS TANG JR Study Date: 01/08/2017 02:40 PM BP: 172/121 mmHg * Patient Location: C.2T\S\E216\S\1 HR: 66 * : 1975 (M/d/yyyy) Gender: Male Height: 67 in * Age: 41 yrs Ethnicity: CA Weight: 202 lb * Ordering Physician: Komal Montiel * Referring Physician: Self, Referred * Performed By: Michell Connell RCS * * Reason For Study: ELEVATED TROPONIN * BSA: 2.0 m2 * -- Conclusions -- * Left ventricular systolic function is normal. * No regional wall motion abnormalities noted. * Ejection Fraction = 60-65%. * Diastolic dysfunction, Grade II (pseudonormalization pattern). * There is mild mitral regurgitation. Procedure Details * A complete two-dimensional transthoracic echocardiogram was performed (2D, M-mode, Doppler and color flow Doppler). Left Ventricle * The left ventricle is normal in size. * There is borderline concentric left ventricular hypertrophy. * Left ventricular systolic function is normal. * Ejection Fraction = 60-65%. * No regional wall motion abnormalities noted. Right Ventricle * The right ventricle is grossly normal size. * The right ventricular systolic function is normal as assessed by tricuspid annular plane systolic excursion (TAPSE) (normal >1.5 cm). Atria * The left atrial size is normal. * Right atrium not well visualized. * No ASD detected; PFO is not assessed. Mitral Valve * The mitral valve is grossly normal. * There is no mitral valve stenosis. * There is mild mitral regurgitation. Tricuspid Valve * The tricuspid valve is not well visualized, but is grossly normal. * There is no tricuspid stenosis. * There is trace tricuspid regurgitation. Aortic Valve * The aortic valve is not well visualized. * The aortic valve opens well. * No hemodynamically significant valvular aortic stenosis. * No aortic regurgitation is present. Pulmonic Valve * The pulmonary valve is not well seen, but the Doppler examination is normal without significant regurgitation or stenosis. Great Vessels * The aortic root is normal size. Pericardium/Pleural * There is no pericardial effusion. Great Vessels * Normal inferior vena cava size and collapsability with sniff indicates a normal right atrial pressure of 3 mmHg Left Ventricular Diastolic Function * Diastolic dysfunction, Grade II (pseudonormalization pattern). MMode 2D Measurements and Calculations IVSd 1.3 cm IVSs 1.7 cm LVIDd 4.7 cm LVIDs 3.6 cm LVPWd 1.2 cm LVPWs 1.3 cm IVS/LVPW 1.1 FS 24.0 % EDV(Teich) 102.7 ml ESV(Teich) 53.6 ml EF(Teich) 47.8 % EDV(cubed) 104.2 ml ESV(cubed) 45.8 ml EF(cubed) 56.1 % % IVS thick 30.0 % % LVPW thick 11.5 % LV mass(C)d 224.7 grams LV mass(C)dI 110.7 grams/m\S\2 LV mass(C)s 201.5 grams LV mass(C)sI 99.2 grams/m\S\2 SV(Teich) 49.1 ml SI(Teich) 24.2 ml/m\S\2 SV(cubed) 58.4 ml SI(cubed) 28.8 ml/m\S\2 Ao root diam 3.3 cm Ao root area 8.3 cm\S\2 ACS 2.0 cm LA dimension 3.3 cm LA/Ao 1.0 LVOT diam 2.0 cm LVOT area 3.1 cm\S\2 Doppler Measurements and Calculations MV E max zheng 108.9 cm/sec MV A max zheng 83.6 cm/sec MV E/A 1.3 MV P1/2t max zheng 105.8 cm/sec MV P1/2t 35.6 msec MVA(P1/2t) 6.2 cm\S\2 MV dec slope 870.9 cm/sec\S\2 MV dec time 0.12 sec Ao V2 max 126.7 cm/sec Ao max PG 6.4 mmHg Ao max PG (full) 3.2 mmHg CECILIA(V,A) 2.2 cm\S\2 CECILIA(V,D) 2.2 cm\S\2 LV V1 max PG 3.2 mmHg LV V1 max 90.1 cm/sec MR max zheng 638.7 cm/sec MR max PG 165.2 mmHg PA V2 max 97.7 cm/sec PA max PG 3.8 mmHg
--- NOTE | 2017-01-08 19:13 | Cardiology Consultation ---
Cardiology Consultation Date of Service Jan 08, 2017. Cardiology Consultation The patient was seen and examined by me earlier today. The 1st encounter was prior to him undergoing emergency cardiac catheterization. The 2nd was following the cardiac catheterization. Patient is a 41-year-old white male. His past medical history is significant for an episode of gastroenteritis in August of 2011. That time he reported 5 days of diarrhea. He presented to this hospital with pleuritic chest discomfort. His electrocardiogram revealed ST segment elevations consistent with early repolarization or pericarditis. His troponin I was elevated with a peak of 2.74. He was diagnosed with myopericarditis. An echocardiogram performed on September 11 2011 revealed normal left ventricular size and systolic function. Mild concentric LVH. Significant valvular abnormalities. No pericardial effusion. At this time the patient states that for the previous 4- 5 days he has been having loose stools. On January 07 had 2 episodes of loose stools. He states that it was a large amount of liquid stool. He had decreased oral intake on January 07. States he had decrease his urine production. Urine was dark in color. On the evening of January 07 after getting off of the toilet became lightheaded, nauseated, and diaphoretic. He thinks he may have had a brief episode of loss of consciousness for several seconds. This was not witnessed. He was speaking to his father on the telephone at the time. His father who was also in attendance this morning thinks that his son did not completely lose consciousness. Because of this episode the patient came to the emergency department for evaluation. His electrocardiogram revealed sinus rhythm. ST segment elevations consistent with early repolarization. Similar to prior electrocardiograms over the past several years. His troponin I was Initially elevated 2.2 4 0. Repeat troponin I later on the evening of January 07 was 4.250. He was admitted to the intensive care unit as a telemetry border. early on January 08 the patient was felt to have increased ST segment elevations on his monitored leads. A repeat electrocardiogram was performed and was felt the have increased ST segment elevations compared to electrocardiogram performed on January 07. A heart alert was called. The patient was evaluated by me in the intensive care unit. States he was having intermittent retrosternal chest pressure. No Associated symptoms with it. Discomfort was worse if he was bending forward. Slight pleuritic component to it. his electrocardiograms were reviewed me. There was a slight increase in ST segment elevations compared to earlier electrocardiograms since admission. In light of the elevated cardiac enzymes it was felt best to exclude significant obstructive coronary artery disease. He was taken to the cardiac catheterization lab. Arterial access was 1st attempted via the right radial artery. These attempts were unsuccessful. He developed spasm in the right radial artery. Catheterization was subsequently performed via a 6 Wolof sheath in the right femoral artery. This revealed a right dominant circulation. No obstructive coronary artery disease. Mild luminal irregularities of the LAD. Normal LV systolic function wall motion. based on the lack of obstructive coronary artery disease was felt the patient's enzyme elevation was secondary to myopericarditis. He was started on colchicine and ibuprofen. The patient was seen by me post catheterization. No complaints of chest pain. No pain in his right femoral catheterization site. No right leg pain. Since the episode of lightheadedness on the evening of January 07 no further lightheadedness. No nausea or diaphoresis. No further episodes of loose stools. No fevers or chills. He denies orthopnea or PND. No palpitations. No dyspnea at rest or with his normal activities. Recent past Medical history is significant for being struck in the head by a heavy object on December 19. He may have had loss of consciousness for a few minutes. He did not seek medical attention for this injury at that time. He he was seen in the emergency department at this hospital on December 30 for headaches. He has felt to have post concussive syndrome. The patient states that since then he has had recurrent headaches. He has severe headache on January 07. Had pain behind his right eye. Throbbing pain on the right side of his head. Photosensitivity. No focal motor weakness in his extremities. Past medical history 1. Presumed myopericarditis August 2011. 2. History of hypertension. 3. History of bipolar disorder.4. History of anxiety. 5. History of lumbar disc disease with radiculopathy. 6. Status post biceps tendon surgery. 7. Status post microdiskectomy surgery. 8. History of MRSA infection. Family history: His father developed coronary artery disease in his 50s. Social history: The patient is single. No children. Smoked cigarettes in the past. None for the past few years. He does chew tobacco. He smokes marijuana on a frequent basis Medications at the time of admission: None. Allergies: No known drug allergies. Review of systems: 10 point review of systems negative other than for above and sensation of constraint around his chest since his injury on December 19. Exam: When I initially examined the patient he was in no distress. Head: No evidence of trauma. Blood pressure 143/76. Pulse 56. Pulse oximetry 97 percent. Eyes: Pupils equal and round. Anicteric. Conjunctiva normal.: No jugular venous distention. Carotids 2/2 bilaterally. Normal upstroke. No bruits. Lungs: Clear. No rales or wheezes. Normal respiratory effort.: PMI normal. No lifts or heaves. Regular rate and rhythm. S1-S2 normal. No S3 or S4. No murmur or rub. Chest wall: Mild tenderness on palpation along both parasternal borders. Abdomen: Soft. Nontender. No palpable masses organomegaly. No bruits. Extremities: No pretibial edema. No cyanosis or clubbing. Right groin post catheterization revealed no evidence of bleeding. no hematoma. He had had a 6 Wolof StarClose vascular closure device deployed for hemostasis. Distal pulses strongly palpable post cardiac catheterization. Neurologic: Alert and oriented x3. Motor grossly intact. Psychiatric: Affect is normal. Imaging studies have included chest x-ray, CT scan of the chest with contrast, head CT scan, and CTA of the neck. Chest x-ray reviewed by me. No heart failure or infiltrate. CT of the chest without evidence of thoracic aortic aneurysm or pulmonary embolus. Head CT without any acute intracranial abnormality. CTA of the neck with no abnormalities noted in the great vessels. Labs revealed WBC 9.51, hemoglobin 14.9, hematocrit 44.5, platelet count 228. INR 1.0, PTT 30.8, sodium 143, potassium 4.0, chloride 110, carbon dioxide 26, BUN 8, creatinine 0.81, random glucose 98. Initial potassium had been 3.3 on the evening of January 07. Toxicology screen positive for marijuana. Electrocardiogram January 07 at 19:0 4:54 revealed sinus rhythm with sinus arrhythmia. ST segment elevations in leads 1, 2, AVF, V4-V6 consistent with early repolarization. No significant change in the ST segments compared to electrocardiogram of September 16, 2016. Electrocardiogram January 08 2017 at 3:12: 33 with sinus bradycardia, increased ST segment elevations leads 1, 2, V4-V6 a compared to the electrocardiogram on the evening of Tuyet 11th. ST segment elevations consistent with early repolarization versus pericarditis versus acute injury. Echocardiogram performed today preliminary report of normal left ventricular systolic function and wall motion. No pericardial effusion. assessment: 1. Electrocardiogram over the past several years consistent with early repolarization. Electrocardiogram earlier this morning with increase in the ST segment elevations. Subsequent cardiac catheterization with no obstructive coronary artery disease. Increased ST segment elevations likely secondary to pericarditis. 2. Elevated troponin I. In light of the coronary angiographic findings the troponin I elevation likely secondary to myopericarditis. Of note is that patient has had loose stools over the past several days. This was the same type of symptom preceeding his episode of myopericarditis in 2011. 3. Normal LV systolic function wall motion on both LV angiography and echocardiography. 4. No arrhythmia. 5. No vascular complications evident thus far post cardiac catheterization. 6. Chest discomfort likely combination of pericarditis as well as musculoskeletal discomfort. 7. Head trauma December 19. Post concussive type symptoms at this time. 8. Episode of near syncope or presyncope on the evening of January 07. Likely secondary to hypotension. Intravascular volume depletion secondary to decreased oral intake and increased GI fluid losses. 9. Hypokalemia on admission. Secondary to GI fluid losses. Recommendations: 1. The patient was started on colchicine 0.6 milligrams b.i.d. and ibuprofen 4 milligrams t.i.d. post cardiac catheterization. 2. Repeat electrocardiogram on January 09. Reassess ST segments. 3. Check serum magnesium in light of the hypokalemia and GI fluid losses. 4. Check lipid profile and direct LDL. If he has a significant dyslipidemia consider statin therapy. He has a significant CAD risk factor with his father having had development of coronary artery disease when he was in his 50s. 5. If his blood pressure increases further treat with antihypertensive medications. He has a history of hypertension. Thank you for asking us to see this patient in Cardiology consultation.
[2017-01-08] MEDS: KETOROLAC TROMETHAMINE 10 MG TAB PO PRN (21:16)
[2017-01-09] VITALS (7 sets, daily range): BP systolic 149–162; BP diastolic 98–107; PULSE 57–71; TEMP 36.5–36.9; O2SAT 97–100
[2017-01-09] MEDS ORDERED: NURSING VERBAL MED ORDER ONE (01:00)
[2017-01-09] MEDS: KETOROLAC TROMETHAMINE 10 MG TAB PO PRN ×2 (01:04→10:01)
[2017-01-09] MEDS: SODIUM CHLORIDE 0.9% 1000ML 1,000 ML IV SCH (05:04)
[2017-01-09 06:40] LABS: BASO % 0.6 %; BASO ABS # 0.04 K/uL (0-0.2); COMPLETE YES; EOS % 1.7 %; HEMATOCRIT 40.2 % (42-52); IG% 0.1 %; LYMPH ABS # 1.44 K/uL (1.2-3.4); MEAN CELL VOLUME 87.8 fL (80-100); MEAN CORPUSCULAR HEMOGLOBIN 29.7 pg (25-34); MEAN CORPUSCULAR HGB CONC 33.8 g/dl (32-36); MEAN PLATELET VOLUME 10.4 fL (7.4-10.4); MONO % 9.4 %; NEUT % 68.2 %; PLATELET COUNT 209 K/uL (130-400); RED BLOOD COUNT 4.58 M/uL (4.7-6.1)
[2017-01-09 07:15] LABS: ALT/SGPT 43 U/L (12-78); BLOOD UREA NITROGEN 7 mg/dl (7-18); BUN/CREATININE RATIO 7.6 (10-20); CALCIUM 8.6 mg/dl (8.5-10.1); CARBON DIOXIDE 26 mmol/L (21-32); CHLORIDE 108 mmol/L (98-107); CHOLESTEROL 144 mg/dl (0-200); CREATININE 0.88 mg/dl (0.60-1.40); GLUCOSE 98 mg/dl (70-99); POTASSIUM 3.9 mmol/L (3.5-5.1); SODIUM 140 mmol/L (136-145)
[2017-01-09 07:19] LABS: ALB/GLOB RATIO 1.1 (0.9-2); ALKALINE PHOSPHATASE 61 U/L (45-117); AST/SGOT 69 U/L (15-37); HDL CHOLESTEROL 36 mg/dl; TRIGLYCERIDES 101 mg/dl (0-150); VERY LOW DENSITY LIPOPROT CALC 20 mg/dl
[2017-01-09] MEDS ORDERED: CLC6 PO (10:56)
[2017-01-09] MEDS ORDERED: TRD10 PO (10:56)
--- NOTE | 2017-01-09 10:58 | Discharge Instructions ---
Discharge Instructions Date of Service Jan 09, 2017. Admission Reason for Admission: Post Concussive Syndrome, Syncope Discharge Discharge Diagnosis / Problem: Pericarditis, Concussion Discharge Goals Goal(s): Improve disease control Activity Recommendations Activity Limitations: per Instructions/Follow-up section Lifting Limitations: none Exercise/Sports Limitations: as tolerated May Resume Sexual Activity: when tolerated Shower/Bathe: no limitations Driving or Machine Use: no limitations . Instructions / Follow-Up Instructions / Follow-Up Follow up with your family doctor within a week. - Make sure to have your blood pressure checked when you go there. It has been high while you were in the hospital. - Take the medication Colchicine twice a day to help your chest pain. - Take the medication Toradol for headache needed - just make sure to take it with food. Current Hospital Diet Patient's current hospital diet: Regular Diet Discharge Diet Recommended Diet: AHA Diet (Heart Healthy) Pending Studies Studies pending at discharge: no Laboratory Results Lipid Panel Test 01/09/17 06:02 Range/Units Triglycerides Level 101 0-150 mg/dl Cholesterol Level 144 0-200 mg/dl HDL Cholesterol 36 mg/dl LDL Cholesterol Direct 94 mg/dl Cholesterol/HDL Ratio 4.0 LDL Cholesterol, Calculated mg/dl Medical Emergencies . Who to Call and When: Medical Emergencies: If at any time you feel your situation is an emergency, please call 911 immediately. . Non-Emergent Contact Non-Emergency issues call your: Primary Care Provider . . "Provider Documentation" section prepared by Cleo Dominguez. . VTE Core Measure Inpt VTE Proph given/why not?: SCD's
--- NOTE | 2017-01-09 11:03 | Discharge Summary ---
Discharge Summary Date of Service Jan 09, 2017. (Cleo Dominguez MD) Discharge Summary Admission Date: Jan 07, 2017 at 23:46 Discharge Date: Jan 09, 2017 Discharge Disposition: Home Principal Diagnosis: Pericarditis Problems/Secondary Diagnoses: Post-Concussion Immunizations: Have You Had Influenza Vaccine: No History of Tetanus Vaccine?: Yes History of Pneumococcal: No History of Hepatitis B Vaccine: Yes Procedures: Cardiac cath Consultations: Dr Duran - Cardiology (Cleo Dominguez MD) Medication Reconciliation New Medications: Colchicine (Colcrys) 0.6 Mg Tab 0.6 MG PO BID for 10 Days, #20 TAB Ketorolac Tromethamine (Ketorolac Tromethamine) 10 Mg Tab 10 MG PO Q6H PRN for Pain for 5 Days, #20 TAB Take with food Referrals At Discharge Follow up Referrals: Neurologist Referral - [place] 1-2 [place]eks [place] [facility] [place] Nerissa Daniels D.O. Discharge Exam Review of Systems: Constitutional: No chills, No sweats Eyes: No worsening of vision Respiratory: No cough, No sputum, No wheezing Cardiovascular: No chest pain, No orthopnea Abdomen: No pain, No nausea, No vomiting Genitourinary - Male: No hematuria, No dysuria Neurologic: + problem reported (headache, improves w/toradol), No memory loss, No paralysis Psychiatric: No depression symptoms, No anhedonism Endocrine: No fatigue Hematologic / Lymphatic: No abnormal bleeding/bruising Integumentary: No rash Physical Exam: General Appearance: WD/WN, no apparent distress Eyes: normal inspection, PERRL ENT: hearing grossly normal Neck: supple, no JVD Respiratory/Chest: lungs clear, normal breath sounds, no respiratory distress Cardiovascular: regular rate, rhythm, no murmur, normal peripheral pulses Abdomen / GI: normal bowel sounds, non tender Extremities: no pedal edema Neurologic/Psychiatric: alert, normal mood/affect, normal reflexes, oriented x 3 Skin: no rash (Cleo Dominguez MD) Hospital Course HPI: 41-year-old male with no significant past medical history except for history of concussion a few weeks ago presented to the ER with complaints of a headache that started this morning. Per ER notes, he had a concussion after he was hit by concrete 2 weeks ago while at work .he had briefly lost consciousness at that point. He was seen in the ER on 12/30/[address] was performed which was negative for hemorrhage. He was being treated for concussion. He also noted that he was wearing a harness at that time . He complains of headache and a syncopal episode which occurred this morning. He is unsure how long he was unconscious. he complains of numbness and tingling in his arm, nausea and headache. Denies any chest pain, shortness of breath, palpitations. HOSPITAL COURSE: Myopericarditis - Continue colchicine 0.6mg BID and Toradol 10mg q6h for pain - Does not need cardiology follow up unless symptoms change - Echo: * -- Conclusions -- * Left ventricular systolic function is normal. * No regional wall motion abnormalities noted. * Ejection Fraction = 60-65%. * Diastolic dysfunction, Grade II (pseudonormalization pattern). * There is mild mitral regurgitation. Post-concussive syndrome - May have component of underlying migraine, but for now treat symptomatically with Toradol - Neuro follow up in 2-3 weeks Hx PTSD, potential Bipolar disorder - Does not want to be on any psych meds. - Denies therapy which was offered. DVT prophylaxis: SCDs Full code Disposition: Discharged on 01/09/17 in good condition Total Time Spent: Greater than 30 minutes This includes examination of the patient, discharge planning, medication reconciliation, and communication with other providers. (Cleo Dominguez MD) Resident Physician Supervision Note: I interviewed and examined the patient. Discussed with Dr. Dominguez and agree with findings and plan as documented in the note. Any exceptions or clarifications are listed here: None Documented By: Jack Canada feeling better overall chest pain off and on but improving. headaches ongoing but not as severe. explained plan of care. explained outpt f/u. all other ROS otherwise negative except for as above vitals noted nad breathing unlabored no neuro deficits no pallor or icterus no appearance of pain/discomfort no diaphoresis myopericarditis - stable for discharge on NSAID and colchicine headaches - ?post concussive and baseline migraine/tension - f/u neuro as scheduled. stable for home, wants to go home, understands and agrees with plan as above (Jack Canada, D.O.) Discharge Instructions Please refer to the electronic Patient Visit Report (Discharge Instructions) for additional information. (Cleo Dominguez MD) Follow-Up - With PCP in 1 week - monitor BP and headache improvement - With Neuro in 1-2 weeks (Cleo Dominguez MD) Additional Copies To Nerissa Daniels D.O. Resident Tracking Resident Involvement: Resident Care Provided Care Provided: Adult [facility] (Cleo Dominguez MD)
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
== END 2017-01-09 13:35 | disposition home or self-care (01) | DRG 287 ==
LOC: C.EDB 18:14 → C.2E 23:46 → ENRESERV 01-08 00:09 → C.MSICU 01-08 02:57 → C.2T 01-08 13:20
PROVIDERS: ADMIT Family Medicine; ATTEND Family Medicine
PROC: B41F1ZZ Fluoroscopy of Right Lower Extremity Arteries using Low Osmolar Contrast (ICD-10-PCS; principal; 2017-01-08 03:50)
PROC: B2111ZZ Fluoroscopy of Multiple Coronary Arteries using Low Osmolar Contrast (ICD-10-PCS; principal; 2017-01-08 03:50)
PROC: 4A023N7 Measurement of Cardiac Sampling and Pressure, Left Heart, Percutaneous Approach (ICD-10-PCS; principal; 2017-01-08 03:50)
PROC: B2151ZZ Fluoroscopy of Left Heart using Low Osmolar Contrast (ICD-10-PCS; principal; 2017-01-08 03:50)
DX: I31.9 Disease of pericardium, unspecified (principal); F07.81 Postconcussional syndrome; W22.8XXS Striking against or struck by other objects, sequela; G44.309 Post-traumatic headache, unspecified, not intractable; R20.0 Anesthesia of skin; G43.909 Migraine, unspecified, not intractable, without status migrainosus; G44.209 Tension-type headache, unspecified, not intractable; M54.2 Cervicalgia; R55 Syncope and collapse; E87.6 Hypokalemia; A08.4 Viral intestinal infection, unspecified; E86.9 Volume depletion, unspecified; F41.9 Anxiety disorder, unspecified; F31.9 Bipolar disorder, unspecified; F43.10 Post-traumatic stress disorder, unspecified; Z87.891 Personal history of nicotine dependence; Z86.79 Personal history of other diseases of the circulatory system

== ENCOUNTER 2017-01-10 13:00 | Emergency (ER) | payer OTHER ==
[~2017-01-10] VITALS: Ht 170.2 cm; Wt 70.9 kg
[~2017-01-10 13:00] MED LIST changes: +CLC6 PO; -OXYC1TAB3 PO; +TRD10 PO
[2017-01-10 13:08] VITALS: TEMP 36.5; Ht 170.2 cm; Wt 70.9 kg
[2017-01-10 14:21] VITALS: BP 121/77; PULSE 71; O2SAT 97
--- NOTE | 2017-01-10 16:28 | EMERGENCY ROOM VISIT NOTE ---
History Report prepared by Sahil: Preet Senior Under the Supervision of: Dr. Efraín Woods D.O. First contact with patient: 14:20 Chief Complaint: OTHER COMPLAINT Stated Complaint: HEART CATH SITE R GROIN GETTING LARGER History of Present Illness The patient is a 41 year old male who presents to the Emergency Room with complaints of worsening bruise around the heart catheterization site on the right groin starting about 2-3 days ago. The patient had a heart catheterization about 2-3 days ago. He denies any bloody discharge or swelling. He currently denies any pain. He denies any fevers, chills, or any other complaints. Source of History: patient Onset: about 2-3 days ago Position: other (right groin area) Symptom Intensity: No pain Quality: other (bruise) Timing: worsening Associated Symptoms: No fevers, No chills Review of Systems See HPI for pertinent positives & negatives. A total of 10 systems reviewed and were otherwise negative. Past Medical & Surgical Medical Problems: (1) ANXIETY STATE NOS (2) Bipolar disorder (3) HTN (hypertension) (4) Lumbar disc herniation with radiculopathy (5) Post concussive syndrome (6) Syncope Surgical Problems: (1) Bicept tendon surgery (2) History of tonsillectomy (3) Micro discectomy Family History Cancer Heart disease Lung disease Social History Smoking Status: Former Smoker Alcohol Use: occasionally Drug Use: marijuana Marital Status: single Housing Status: lives with family Occupation Status: employed Current/Historical Medications Scheduled Colchicine (Colcrys), 0.6 MG PO BID Scheduled PRN Ketorolac Tromethamine (Ketorolac Tromethamine), 10 MG PO Q6H PRN for Pain Allergies Coded Allergies: BEE STING (Verified Allergy, Mild, 01/10/17) Physical Exam Vital Signs Date Time Temp Pulse Resp B/P (MAP) Pulse Ox O2 Delivery O2 Flow Rate FiO2 01/10/17 14:21 71 18 121/77 97 Room Air 01/10/17 13:08 36.5 75 17 139/97 96 Room Air Physical Exam CONSTITUTIONAL/VITAL SIGNS: Reviewed / noted above. GENERAL: Non-toxic in appearance. INTEGUMENTARY: Warm, dry, and [place]. HEAD: Normocephalic. EYES: without scleral icterus or trauma. ENT/OROPHARYNX: clear and moist. LYMPHADENOPATHY/NECK: Is supple without lymphadenopathy or meningismus. RESPIRATORY: Lungs clear and equal. CARDIOVASCULAR: Regular rate and rhythm. GI/ABDOMEN: Soft and nontender. No organomegaly or pulsatile mass. No rebound or guarding. Normal bowel sounds. EXTREMITIES: Warm and well perfused. Small bruise on the right groin. There is a palpable femoral pulse. No significant swelling. Small area of ecchymosis about the size of a quarter, not unexpected after femoral catheterization. No thrill noted. Nontender. BACK: No CVA tenderness. NEUROLOGICAL: Intact without focal deficits. PSYCHIATRIC: normal affect. MUSCULOSKELETAL: Normally developed with good muscle tone. Medical Decision & Procedures ED Course 1420: Previous medical records were reviewed. The patient was evaluated in room C05. A complete history and physical examination was performed. 1430: I discussed the results and findings with the patient. He verbalized agreement of the treatment plan. He will be discharged home. Medical Decision Medication Reconciliation: I attest that I have personally reviewed the patient' s current medication list. Blood pressure Screening: Patient was found to have normal blood pressure on screening and does not require follow-up. Differential diagnosis includes but is not limited to hematoma, pseudoaneurysm, vascular occlusion, infection. This is a 41-year-old male who presents to the ED with a chief complaint of a contusion in his right groin where he had his cardiac catheterization done a few days ago. The patient's not complaining of any pain. He was just worried about the ecchymosis. Evaluation of the site reveals a nontender site without a thrill. There is no swelling or induration. There is a superficial ecchymotic area about the size of a quarter overlying the area. This is what I would feel would be unexpected bruise after this procedure. I do not suspect findings are consistent with that of a pseudoaneurysm, infection or continuing bleed. Impression Primary Impression: Contusion of right groin Scribe Attestation The scribe's documentation has been prepared under my direction and personally reviewed by me in its entirety. I confirm that the note above accurately reflects all work, treatment, procedures, and medical decision making performed by me. Departure Information Dispostion Home / Self-Care Referrals No Doctor, Assigned (PCP) Forms HOME CARE DOCUMENTATION FORM, IMPORTANT VISIT INFORMATION, WORK / SCHOOL INSTRUCTIONS Patient Instructions My [facility] Additional Instructions Follow-up with your doctor as needed. Follow discharge instructions provided by your doctor previously given.
== END 2017-01-10 14:48 | disposition home or self-care (01) ==
LOC: C.EDB 13:01 → C.EDC 14:48
DX: S30.1XXA Contusion of abdominal wall, initial encounter (principal); X58.XXXA Exposure to other specified factors, initial encounter; Y84.9 Medical procedure, unspecified as the cause of abnormal reaction of the patient, or of later complication, without mention of misadventure at the time of the procedure; Z98.890 Other specified postprocedural states; F41.9 Anxiety disorder, unspecified; F31.9 Bipolar disorder, unspecified; I10 Essential (primary) hypertension; Z80.9 Family history of malignant neoplasm, unspecified; Z87.891 Personal history of nicotine dependence; F12.10 Cannabis abuse, uncomplicated; Z79.899 Other long term (current) drug therapy

== ENCOUNTER 2017-06-13 07:21 | Emergency (ER) | payer OTHER ==
[~2017-06-13] VITALS: Ht 170.2 cm; Wt 92.0 kg
[2017-06-13 07:23] VITALS: TEMP 36.6; Ht 170.2 cm; Wt 92.0 kg
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
[2017-06-13 08:10] LABS: URINE APPEARANCE CLEAR (CLEAR); URINE BILIRUBIN NEG (NEG); URINE COLOR YELLOW; URINE NITRITE NEG (NEG); URINE SPECIFIC GRAVITY 1.014 (1.000-1.030); UROBILINOGEN NEG (NEG)
[2017-06-13 08:13] LABS: MANUAL MICROSCOPIC REQUIRED? NO; REVIEW REQ? NO
[2017-06-13 08:30] LABS: BENZODIAZEPINE, URINE NEG (NEG); COCAINE,URINE NEG (NEG); PHENCYCLIDINE, URINE NEG (NEG)
[2017-06-13 08:42] LABS: BASO % 0.7 %; BASO ABS # 0.04 K/uL (0-0.2); COMPLETE YES; EOS % 0.7 %; HEMATOCRIT 43.2 % (42-52); IG% 0.2 %; LYMPH % 21.7 %; LYMPH ABS # 1.23 K/uL (1.2-3.4); MEAN CELL VOLUME 88.7 fL (80-100); MEAN CORPUSCULAR HEMOGLOBIN 30.2 pg (25-34); MEAN PLATELET VOLUME 10.4 fL (7.4-10.4); MONO % 8.1 %; NEUT % 68.6 %; PLATELET COUNT 237 K/uL (130-400); RED BLOOD COUNT 4.87 M/uL (4.7-6.1); WHITE BLOOD COUNT 5.67 K/uL (4.8-10.8)
[2017-06-13 08:59] LABS: BUN/CREATININE RATIO 12.3 (10-20); CALCIUM 8.7 mg/dl (8.5-10.1); CREATININE 1.01 mg/dl (0.60-1.40)
[2017-06-13 09:09] LABS: ALB/GLOB RATIO 1.3 (0.9-2); THYROID STIMULATING HORMONE 1.17 uIu/ml (0.300-4.500)
[2017-06-13 12:18] VITALS: BP 153/96; PULSE 61; O2SAT 98
== END 2017-06-13 12:20 | disposition home or self-care (01) ==
LOC: C.EDB 07:22 → C.EDA 12:20
DX: F41.9 Anxiety disorder, unspecified (principal); F31.9 Bipolar disorder, unspecified; I10 Essential (primary) hypertension; M51.16 Intervertebral disc disorders with radiculopathy, lumbar region; Z80.9 Family history of malignant neoplasm, unspecified; Z82.49 Family history of ischemic heart disease and other diseases of the circulatory system; Z83.6 Family history of other diseases of the respiratory system